=== PATIENT | female | born 1995 | race Caucasian/White ===

== ENCOUNTER 2017-07-19 11:48 | Emergency (ER) | payer OTHER ==
[~2017-07-19] VITALS: Ht 162.6 cm; Wt 66.0 kg
[2017-07-19 11:58] VITALS: TEMP 37.5; Ht 162.6 cm; Wt 66.0 kg
[2017-07-19] MEDS ORDERED: IBUPROFEN 600 MG TAB PO STA (12:29)
[2017-07-19] MEDS ORDERED: BCPILLS PO (12:32)
--- NOTE | 2017-07-19 12:43 | DIAGNOSTIC IMAGING REPORT ---
RIGHT ANKLE MIN 3 VIEWS ROUTINE CLINICAL HISTORY: 22 years-old Female presenting with ROLLED ANKLE Right. TECHNIQUE: Frontal, mortise, and lateral views of the right ankle were obtained. COMPARISON: None. FINDINGS: Ankle mortise intact. No acute fracture or malalignment. No significant degenerative change. No radiographic evidence of an elbow joint effusion. Mild soft tissue swelling noted over the lateral malleolus. IMPRESSION: No acute osseous injury of the right ankle. Soft tissue swelling over the lateral malleolus. Electronically signed by: Alex Carrington M.D. 07/19/2017 12:42 PM Dictated Date/Time: 07/19/2017 12:41 PM
--- NOTE | 2017-07-19 13:16 | EMERGENCY ROOM VISIT NOTE ---
ED Visit Note First contact with patient: 12:05 CHIEF COMPLAINT: Ankle pain HISTORY OF PRESENT ILLNESS: This 22-year-old female patient presents to the emergency department after sustaining an injury to the right ankle and foot with a twisting, inversion motion yesterday, she states that she was walking on a sidewalk and her foot went off a curb. She states she felt a "pop" at the time of the injury and has been unable to walk on it since then. The patient complains of pain along the outside of the ankle. The patient denies pain of the foot. The patient rates the pain as throbbing and 7/10. The patient is not able to bear weight on the foot. Constant pain, worse with movement, weight bearing, and the dependent position. No knee pain, the patient is able to move their toes. No numbness or weakness of the foot, no laceration. The patient has not had a previous fracture to this ankle, but reports several previous sprains of this ankle. The patient has taken no medications for the pain. The patient denies any other injury. REVIEW OF SYSTEMS: A 6 system review of systems was completed with positives and pertinent negatives listed in the HPI. ALLERGIES: No known allergies MEDICATIONS: Reviewed in chart PMH: No significant past medical history SOCIAL HISTORY: [employer]. Admits to occasional smoking and regular alcohol use, denies recreational drug use. PHYSICAL EXAM: Vital Signs: Reviewed Nurse's notes, vital signs stable. GENERAL : Pleasant and cooperative, no acute distress, well-developed, well-nourished. MENTAL STATUS: Alert, oriented to person place and time, and cooperative. MUSCULOSKELETAL: The right ankle is swollen and tender over the lateral malleolus, but the skin is intact and there is no ligamentous instability. There is no fifth metatarsal tenderness. There is no tenderness over the rest of the foot. There is no calf or tibia/fibular tenderness. There is no visual deformity. The foot and toes are warm and well-perfused. Dorsalis pedis pulse 2+. Sensation to pain and light touch is intact. Capillary refill less than 2 seconds. EMERGENCY DEPARTMENT COURSE: I examined the patient. Differential diagnosis includes ankle sprain, strain, contusion, fracture, dislocation. X-rays of the right ankle were reviewed by myself and read by radiology and reveal no acute fracture, mild soft tissue swelling over the lateral aspect of the ankle. Gel ankle splint was applied to the ankle under my direction and the position was satisfactory. Neurovascular status was rechecked and intact. The patient was instructed on the use of crutches. The patient was discharged home in good condition. Current/Historical Medications Scheduled Control Pills ( Control Pills), 1 TAB PO DAILY Allergies Coded Allergies: No Known Allergies (Unverified , 07/19/17) Vital Signs Date Time Temp Pulse Resp B/P (MAP) Pulse Ox O2 Delivery O2 Flow Rate FiO2 07/19/17 13:30 66 16 123/70 99 07/19/17 11:58 37.5 70 18 146/95 99 Room Air Medications Administered Medications (Trade) Dose Ordered Sig/Klyie Route Start Time Stop Time Status Last Admin Dose Admin Ibuprofen (Motrin Tab) 600 mg NOW STAT PO 07/19/17 12:29 07/19/17 12:30 DC 07/19/17 12:37 600 MG Departure Information Impression Primary Impression: Right ankle sprain Dispostion Home / Self-Care Condition GOOD Referrals [facility] (PCP) Jairon ArroyoD.O. Patient Instructions ED Sprain Ankle, My [facility] Additional Instructions Apply ice to the ankle and keep it elevated as much as possible for the next 2 days. Use the crutches to avoid any weight bearing on the right ankle, and wear the Velcro splint on the right ankle for support. You may remove the splint for showering, but you should wear it at all other times. Ibuprofen 600 mg and Tylenol 1000 mg every 8 hours if needed for pain. Follow-up with orthopedic surgery for your ankle sprain in the next week. Problem Qualifiers Primary Impression: Right ankle sprain Encounter type: initial encounter Involved ligament of ankle: unspecified ligament Qualified Codes: S93.401A - Sprain of unspecified ligament of right ankle, initial encounter
[2017-07-19 13:30] VITALS: BP 123/70; PULSE 66; O2SAT 99
== END 2017-07-19 13:30 | disposition home or self-care (01) ==
LOC: C.EDB 11:51 → C.EDD 13:30
DX: S93.401A Sprain of unspecified ligament of right ankle, initial encounter (principal); W17.89XA Other fall from one level to another, initial encounter; Y92.480 Sidewalk as the place of occurrence of the external cause; F17.210 Nicotine dependence, cigarettes, uncomplicated; Z79.3 Long term (current) use of hormonal contraceptives